=== PATIENT | male | born 1995 | race African-American/Black ===

== ENCOUNTER 2021-08-18 20:17 | Emergency (ER) | payer SELFPAY ==
[~2021-08-18] VITALS: Ht 165.1 cm; Wt 56.0 kg
[2021-08-18 21:13] VITALS: BP 107/67
[2021-08-18] MEDS ORDERED: ACET10DR15 LEFT EAR (21:33)
== END 2021-08-18 21:56 | disposition home or self-care (01) ==
LOC: ER 20:17
DX: H61.22 Impacted cerumen, left ear (principal); Z85.9 Personal history of malignant neoplasm, unspecified
CPT/HCPCS: 99283